=== PATIENT | female | born 2000 | race Caucasian/White ===

== ENCOUNTER → 2021-07-10 | Outpatient (CLI) | payer BC ==
[2021-07-13 02:44] LABS: BAKERS YEAST ALLERGN IGE COUNT <0.10 kU/L (()); EGG WHITE ALLERGEN IGE COUNT <0.10 kU/L (()); MILK ALLERGEN IGE COUNT <0.10 kU/L (()); ORANGE ALLERGEN IGE COUNT <0.10 kU/L (()); RICE ALLERGE IGE COUNT <0.10 kU/L (()); STRAWBERRY ALLERGEN IGE COUNT <0.10 kU/L (()); TOMATO ALLERGEN IGE COUNT <0.10 kU/L (()); WHEAT ALLERGEN IGE COUNT <0.10 kU/L (())
[2021-07-13 02:45] LABS: ALMOND ALLERGEN IGE COUNT <0.10 kU/L (()); COCONUT ALLERGEN IGE COUNT <0.10 kU/L (()); CORN ALLERGEN COUNT <0.10 kU/L (()); PECAN ALLERGEN IGE COUNT <0.10 kU/L (()); SESAME SEED ALLERGEN IGE COUNT <0.10 kU/L (()); SOYBEAN ALLERGEN IGE COUNT <0.10 kU/L (())
[2021-07-13 07:38] LABS: PEANUT ALLERGEN IGE COUNT <0.10
== END ==
LOC: COL.LAB 12:31
DX: L50.9 Urticaria, unspecified (principal)

== ENCOUNTER → 2021-07-24 | Outpatient (CLI) | payer BC ==
[2021-07-27 06:23] LABS: ALMOND ALLERGEN IGE COUNT <0.10 kU/L (()); BAKERS YEAST ALLERGN IGE COUNT <0.10 kU/L (()); COCONUT ALLERGEN IGE COUNT <0.10 kU/L (()); CORN ALLERGEN COUNT <0.10 kU/L (()); EGG WHITE ALLERGEN IGE COUNT <0.10 kU/L (()); MILK ALLERGEN IGE COUNT <0.10 kU/L (()); ORANGE ALLERGEN IGE COUNT <0.10 kU/L (()); PECAN ALLERGEN IGE COUNT <0.10 kU/L (()); RICE ALLERGE IGE COUNT <0.10 kU/L (()); SESAME SEED ALLERGEN IGE COUNT <0.10 kU/L (()); SOYBEAN ALLERGEN IGE COUNT <0.10 kU/L (()); STRAWBERRY ALLERGEN IGE COUNT <0.10 kU/L (()); TOMATO ALLERGEN IGE COUNT <0.10 kU/L (()); WHEAT ALLERGEN IGE COUNT <0.10 kU/L (())
[2021-07-27 08:02] LABS: PEANUT ALLERGEN CLASS 0
[2021-07-27 08:03] LABS: PEANUT ALLERGEN IGE COUNT <0.10
== END ==
LOC: COL.LAB 16:48
DX: Z01.89 Encounter for other specified special examinations (principal)